=== PATIENT | male | born 1940 | race Caucasian/White ===

== ENCOUNTER → 2020-01-20 14:03 | Outpatient (CLI) | payer BC, SELFPAY ==
--- NOTE | 2020-01-20 | DI.US.S_ITS ---
PROCEDURE: US ABDOMEN LIMITED INDICATIONS: HEMACHROMATOSIS TECHNIQUE: Real-time scanning was performed of the abdominal and retroperitoneal organs, with image documentation. COMPARISON: None. FINDINGS: Liver: There is diffusely increased echogenicity in the liver with attenuation of deeper structures. Gallbladder: Nonshadowing sludge is seen within the dependent portion the gallbladder it gallbladder wall is normal in thickness. Sonographic Valle sign is negative. Biliary ducts: Intrahepatic bile ducts are non-dilated. Extrahepatic bile duct caliber measures 5 mm. Normal is 6-7 mm or less in diameter, or 10 mm or less post-cholecystectomy. Pancreas: Visualized portions of the pancreas are sonographically normal. Miscellaneous: No free right upper quadrant fluid. IMPRESSION: 1. Increased hepatic echogenicity noted possibly related to hepatic steatosis but other sources of hepatocellular disease cannot be excluded. Recommend clinical correlation. 2. Mild gallbladder sludge without calcified gallstones. No signs of acute cholecystitis. Dictated by: Waqas To M.D. on 01/20/2020 at 15:44 Approved by: Waqas To M.D. on 01/20/2020 at 15:49
== END ==
PROVIDERS: PCP Family Medicine; Referring Provider Family Medicine; Visit Provider Naturopath
DX: E83.119 Hemochromatosis, unspecified (principal); K83.8 Other specified diseases of biliary tract
CPT/HCPCS: 76705

== ENCOUNTER → 2020-04-12 09:05 | Outpatient (CLI) | payer BC, SELFPAY ==
--- NOTE | 2020-04-12 09:08 | DI.ECHO.S_ITS ---
[facility] +---------+ : : [address] [place] : : : : [id number] : : : : Phone: [phone]+ Echocardiogram Report + + :Name: MATT ESTRELLA Study Date: 04/12/2020 Height: 76 in : :[facility] Weight: 250 lb : : Gender: Male BSA: 2.4 m2 : :: 1940 Age: 79 yrs BP: 127/74 mmHg: :Reason For Study: aortic stenosis : :Ordering Physician: GREGORY, : :MATT Performed By: Margarita Leyva : :Referring: MATT JENKINS L : + + Interpretation Summary The ejection fraction is estimated to be 55-60%. The aortic valve is moderately calcified. There is moderate to severe aortic stenosis. The calculated aortic valve area is 1.0 cm2. The peak aortic velocity is 3.2 m/sec. Compared to the prior echo study, there has been an increase in the severity of aortic stenosis. There is mild aortic regurgitation. The right ventricular systolic pressure is estimated to be at least 26 mmHg based on an estimated right atrial pressure of 3 mm Hg. Procedure: A two-dimensional transthoracic echocardiogram with color flow and Doppler was performed. The study quality was technically difficult. Comparison is made with the echocardiogram of 09/30/2017. The patient was in sinus rhythm with heart rates between 62-71 bpm during the exam. Left Ventricle: Proximal septal thickening is noted. The left ventricle is normal in size. Left ventricular wall thickness is mildly increased. The ejection fraction is estimated to be 55-60%. Septal motion is consistent with conduction abnormality. Diastolic parameters suggest a relaxation abnormality of the left ventricle, consistent with probable normal filling pressures. Right Ventricle: The right ventricle is mildly dilated. The right ventricular systolic function is normal. Atria: Both atria are normal in size. There is no Doppler evidence for an interatrial shunt. Mitral Valve: The mitral valve is normal in structure and function. There is trace mitral regurgitation. Aortic Valve: The aortic valve is moderately calcified. The aortic valve mean gradient is 24 mmHg. The peak aortic velocity is 3.2 m/sec. The calculated aortic valve area is 1.0 cm2. There is moderate to severe aortic stenosis. Compared to the prior echo study, there has been an increase in the severity of aortic stenosis. There is mild aortic regurgitation. Compared to the prior echo study, there has been a decrease in the severity of aortic regurgitation. Tricuspid Valve: The tricuspid valve is not well visualized, but is grossly normal. There is mild tricuspid regurgitation. The right ventricular systolic pressure is estimated to be at least 26 mmHg based on an estimated right atrial pressure of 3 mm Hg. Pulmonic Valve: The pulmonic valve leaflets are thin and pliable; valve motion is normal. There is no pulmonic valvular regurgitation. Great Vessels: The aortic root is normal size. The ascending aorta could not be visualized. The IVC is of normal diameter and collapses greater than 50% with a sniff. This suggests a low right atrial pressure of 3 mm Hg. Pericardium/ Pleura There is no pericardial effusion. There is no pleural effusion. MMode/2D Measurements & Calculations LVIDd: 4.2 cm LVOT diam: 2.0 cm LVIDs: 2.6 cm Ao root diam: 3.9 cm FS: 37.9 % Ao Arch Diam (Prox Trans): 2.8 cm IVSd: 1.2 cm LVPWd: 0.85 cm LV raza. diameter/BSA (cm/m^2): 1.7 LV sys. diameter/BSA (cm/m^2): 1.1 LA A2 area: 22.7 cm2 RA long axis: 5.6 cm LA A4 area: 15.1 cm2 RA area: 18.0 cm2 LA length (vol): 5.5 cm RA vol: 49.5 ml LA vol: 52.5 ml RA : 20.3 ml/m2 LA vol index: 21.6 ml/m2 IVC diam: 0.98 cm RVD1 (basal): 4.4 cm TAPSE: 2.2 cm Doppler Measurements & Calculations Ao V2 max: 317.8 cm/sec LVOT Max Lazaro: 95.3 cm/sec Ao V2 mean: 234.1 cm/sec LV V1 max P.6 mmHg Ao max P.4 mmHg LV V1 VTI: 22.8 cm Ao mean P.9 mmHg MIRELLA(I,D): 1.0 cm2 Ao V2 VTI: 73.0 cm MIRELLA(V,D): 0.97 cm2 sev ratio: 0.31 MIRELLA indexed to BSA (cm^2/m^2): 0.41 MV E max lazaro: 63.9 cm/sec TR max lazaro: 242.8 cm/sec MV A max lazaro: 104.1 cm/sec TR max P.6 mmHg MV E/A: 0.61 PA V2 max: 82.1 cm/sec Med Peak E' Lazaro: 4.3 cm/sec PA V2 mean: 54.9 cm/sec E/E' med: 15.0 PA mean P.4 mmHg Lat Peak E' Lazaro: 4.8 cm/sec PA pr(Accel): 32.8 mmHg E/E' lat: 13.2 E/e' average: 14.1 MV dec time: 0.26 sec SV(LVOT): 73.7 ml Reading Physician:11:50 AM
== END ==
PROVIDERS: PCP Family Medicine; Referring Provider Family Medicine; Visit Provider Family Medicine
DX: I08.2 Rheumatic disorders of both aortic and tricuspid valves (principal)
CPT/HCPCS: 93306

== ENCOUNTER → 2021-12-19 12:23 | Outpatient (CLI) | payer BC, SELFPAY ==
--- NOTE | 2021-12-19 | DI.US.S_ITS ---
LIMITED ULTRASOUND OF LEFT BREAST: 12/19/2021 CLINICAL: Focal left breast pain retroareloar. No prior exams were available for comparison. Real-time ultrasound of the left breast retroareolar was performed. Tejeda scale images of the real-time examination were reviewed. There is a benign area of fibroglandular tissue in the left breast central to the nipple in the retroareolar region. This correlates as palpated and to the reported pain. No lipoma or mass. IMPRESSION: BENIGN There is no sonographic evidence of malignancy. The area of fibroglandular tissue in the retroareolar left breast is consistent with benign gynecomastia. Exam findings were conveyed to the patient. Patient is advised to monitor for significant change. Clinical follow-up is recommended. This exam was interpreted at Station ID: [id number]. Electronically Signed By: Krishna Mak M.D. slc/:12/19/2021 13:47:10 copy to: KEYLA SUAZO letter sent: Clinical Evaluation Ultrasound BI-RADS: 2 Benign
--- NOTE | 2021-12-19 | DI.MG.S_ITS ---
MALE BILATERAL DIGITAL DIAGNOSTIC MAMMOGRAM 3D/2D: 12/19/2021 CLINICAL: Left breast mass. No prior exams were available for comparison. Male patient. Predominantly fatty tissue. There is an irregular area of fibroglandular tissue in the left breast central to the nipple in the retroareolar region. Left greater than the right. No other significant masses, calcifications, or other findings are seen in either breast. IMPRESSION: INCOMPLETE: NEEDS ADDITIONAL IMAGING EVALUATION The irregular area of fibroglandular tissue in the left breast is indeterminate. A targeted ultrasound is recommended and will immediately follow. This exam was interpreted at Station ID: [id number]. Electronically Signed By: Krishna Mak M.D. slc/:12/19/2021 13:26:50 copy to: KEYLA SUAZO ACR BI-RADS Category 0: Incomplete [id number]
--- NOTE | 2021-12-19 12:26 | DI.RAD.S_ITS ---
PROCEDURE: XR KNEE RT 3V INDICATIONS: back pain, right hip knee pain TECHNIQUE: <3> views of the knee were acquired. COMPARISON: None. FINDINGS: Bones: No fractures or dislocations. No suspicious bony lesions. Mild osteoarthritis. Soft tissues: Trace joint fluid. No suspicious soft tissue calcifications. IMPRESSION: Mild osteoarthritis without fracture or dislocation. Dictated by: Omar Pozo M.D. on 12/19/2021 at 17:31 Approved by: Omar Pozo M.D. on 12/19/2021 at 17:32
--- NOTE | 2021-12-19 12:26 | DI.RAD.S_ITS ---
PROCEDURE: XR LUMBAR SPINE 2-3V INDICATIONS: back pain, right hip knee pain TECHNIQUE: 3 views of the lumbar spine were acquired. COMPARISON: [facility], , L-SPINE 2-3 VIEWS, 01/27/2015, 15:43. FINDINGS: Bones: Transitional anatomy, the lowest vertebral body is designated as a lumbarized S1 on this study. Moderate lower lumbar and lumbosacral degenerative changes. No acute fracture or dislocation. Soft tissues: Overlying bowel gas pattern is normal. No suspicious soft tissue calcifications. Mild degenerative changes of the hips. IMPRESSION: Moderate lower lumbar and lumbosacral degenerative changes. Dictated by: Omar Pozo M.D. on 12/19/2021 at 17:25 Approved by: Omar Pozo M.D. on 12/19/2021 at 17:30
--- NOTE | 2021-12-19 12:26 | DI.RAD.S_ITS ---
PROCEDURE: XR HIP W PEL IF DONE RT 2V INDICATIONS: back pain, right hip knee pain TECHNIQUE: 2 views of the hip were acquired. COMPARISON: None. FINDINGS: Bones: No fractures or dislocations. No suspicious bony lesions. The visualized pelvic ring appears intact. Mild bilateral femoral acetabular osteoarthritic changes. Soft tissues: No suspicious soft tissue calcifications or masses. IMPRESSION: Mild bilateral femoral acetabular osteoarthritic changes. Dictated by: Omar Pozo M.D. on 12/19/2021 at 17:30 Approved by: Omar Pozo M.D. on 12/19/2021 at 17:31
== END ==
PROVIDERS: PCP Family Medicine; Referring Provider Family Medicine; Visit Provider Family Medicine
DX: N63.25 Unspecified lump in the left breast, overlapping quadrants (principal); N64.4 Mastodynia; M17.11 Unilateral primary osteoarthritis, right knee; M47.816 Spondylosis without myelopathy or radiculopathy, lumbar region; R92.8 Other abnormal and inconclusive findings on diagnostic imaging of breast; M47.817 Spondylosis without myelopathy or radiculopathy, lumbosacral region; M25.551 Pain in right hip; M25.561 Pain in right knee; M54.50 Low back pain, unspecified
CPT/HCPCS: 72100; 73502; 73562; 76642; 77066; G0279

== ENCOUNTER 2022-04-20 09:43 | Outpatient (RCR) | payer MEDICARE, OTHER, SELFPAY ==
--- NOTE | 2022-04-20 11:36 | PT.OIE ---
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 Obesity (BMI 30-39.9) Obstructive sleep apnea, adult Osteoarthritis Skin cancer Tobacco use disorder, continuous Past Surgical History (Last Reviewed 02/20/22 @ 15:46 by Nicole Contreras MD) H/O circumcision H/O hernia repair H/O: vasectomy Visit Care Team Role Provider Type Jesse Atkins MD Family Provider Physician Primary Care Provider Specialty: Family Practice Address: [address] [place] [address], [address], [place], [address] Email: Nicole Contreras MD Attending Provider Physician Referring Provider Specialty: Urology Address: [address] [place] [address], [id number] Email: Physical Therapy Initial Evaluation PT-OP-A Visit Information Start: 04/13/22 12:03 Freq: Status: Active Protocol: Document 04/20/22 09:48 AMB (Rec: 04/20/22 10:27 AMB [id number]) Out-Patient Physical Therapy Visit Information Visit Information Visit Type Initial Evaluation Visit Start Time 09:45 Visit Stop Time 10:30 Total Visit Minutes 45 Visit Number 1 PT-OP-B Current Condition Start: 04/13/22 12:03 Freq: Status: Active Protocol: Document 04/20/22 09:48 AMB (Rec: 04/20/22 10:27 AMB [id number]) Current Condition History of Current Condition Onset Date 2 YEARS Current Complaints Urgency History of Current Condition Jesse reports BPH, difficulty voiding and urgency. Voids every 2 hours, does void more frequently with coffee. Gets up 1-2x/night. Drinking water seems to trigger the urgency. Does report difficulty fully voiding, urge incontinence. Walking to the bathroom seems to be a trigger. Current Functional Impairments (Reported) Functional Limitations- ADL's Difficulty voiding, urge incontinence Personal Factors Other Personal Factors That May Effect Osteoarthritis: hip and back Therapy/Recovery pain, BMI 30.4 PT-OP-C Subjective Start: 04/13/22 12:03 Freq: Status: Active Protocol: Document 04/20/22 09:45 AMB (Rec: 04/22/22 11:13 AMB [id number]) Patient Questionnaires Pelvic Floor Distress Inventory Questionnaire (PFDI- SF20) Pelvic Floor Score 10 PT-OP-I Pelvic Floor Start: 04/13/22 12:03 Freq: Status: Active Protocol: Document 04/20/22 09:45 AMB (Rec: 04/22/22 11:15 AMB [id number]) Pelvic Floor Assessment Urine Pelvic Floor Surgery No Urinary Symptoms Urge Sensation,Dribbling After Urination,Incomplete Emptying Leakage Size Small Leakage Cause Urge Other Leakage Causes specifically denies stress incontinence Leaks Per Day 1 Voiding Frequency every 2 hours Nocturia 2 Comments Pelvic Floor Comments declined internal assessment/ biofeedback today, but would consider biofeedback at a later date if needed. PT-OP-T Assessment and Plan Start: 04/13/22 12:03 Freq: Status: Active Protocol: Document 04/20/22 09:45 AMB (Rec: 04/22/22 11:31 AMB [id number]) Physical Therapy Assessment Rehab Potential Rehabilitation Potential Good Evaluation Complexity Number of Personal Factors/Comorbidities 1-2 Number of Body Systems Impaired 1-2 Clinical Presentation at Evaluation Stable Impairments Impairments Functional Activities,Strength Goals Two Impairment Pelvic floor strength Short Term Goal (STG) Jesse will demonstrate improved pelvic floor strength by al his pelvic floor for 10 seconds. STG Duration 5 Braid Maker Goal (LTG) Jesse will contract his pelvic floor while moving from sit to stand. LTG Duration 10 weeks One Impairment Urge incontinence Short Term Goal (STG) Jesse will utilize urge reduction techniques so that he can walk to the bathroom without leaking urine. STG Duration 5 weeks Braid Maker Goal (LTG) Jesse will move from sit to stand without leaking do to urgency. LTG Duration 10 weeks Assessment Summary Assessment Jesse attends physical therapy with his . He has BPH which makes it difficult for him to fully evacuate the bladder. His main reason for attending PT is his urge incontinence. He will get the urge to urinate and then leaks on the way to the bathroom. Denies stress incontinence. He does endorse some urinary frequency, worsened by coffee. Extensive education on urge reduction and how to contract pelvic floor. Will likely want to evaluate pelvic floor contraction when pt amenable to this with biofeedback. Pt will benefit from physical therapy for further instruction in urinary urge reduction and pelvic floor strengthening. Physical Therapy Plan Frequency and Duration Frequency of Treatment 1x/Week Duration of treatment (weeks) 10 Plan of Care Start Date 04/20/22 Plan of Care End Date 06/29/22 Therapeutic Interventions Therapeutic Interventions Home Exercise Program,Manual Therapy,Neuromuscular Re- education,Self-Care/Home Management,Therapeutic Activities,Therapeutic Exercises Modalities Biofeedback,Electric Stimulation Next Visit Focus/Plan Next Note Type Treatment Note Next Visit Plan sEMG, follow up on urge reduction
--- NOTE | 2022-04-20 11:36 | PT.OPPOC ---
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) Urge incontinence (04/20/22) Benign prostatic hyperplasia with lower urinary tract symptoms (04/20/22) Unspecified symptoms and signs involving the genitourinary system (04/20/22) Visit Care Team Role Provider Type Jesse Atkins MD Family Provider Physician Primary Care Provider Specialty: Family Practice Address: [address], [address], [place], [address] Email: Nicole Contreras MD Attending Provider Physician Referring Provider Specialty: Urology Address: [address] [place] [address], [id number] Email: Plan Of Care PT-OP-T Assessment and Plan Start: 04/13/22 12:03 Freq: Status: Active Protocol: Document 04/20/22 09:45 AMB (Rec: 04/22/22 11:31 AMB [id number]) Physical Therapy Assessment Rehab Potential Rehabilitation Potential Good Evaluation Complexity Number of Personal Factors/Comorbidities 1-2 Number of Body Systems Impaired 1-2 Clinical Presentation at Evaluation Stable Impairments Impairments Functional Activities,Strength Goals Two Impairment Pelvic floor strength Short Term Goal (STG) Jesse will demonstrate improved pelvic floor strength by al his pelvic floor for 10 seconds. STG Duration 5 Longterm Goal (LTG) Jesse will contract his pelvic floor while moving from sit to stand. LTG Duration 10 weeks One Impairment Urge incontinence Short Term Goal (STG) Jesse will utilize urge reduction techniques so that he can walk to the bathroom without leaking urine. STG Duration 5 weeks Core Worker Goal (LTG) Jesse will move from sit to stand without leaking do to urgency. LTG Duration 10 weeks Assessment Summary Assessment Jesse attends physical therapy with his . He has BPH which makes it difficult for him to fully evacuate the bladder. His main reason for attending PT is his urge incontinence. He will get the urge to urinate and then leaks on the way to the bathroom. Denies stress incontinence. He does endorse some urinary frequency, worsened by coffee. Extensive education on urge reduction and how to contract pelvic floor. Will likely want to evaluate pelvic floor contraction when pt amenable to this with biofeedback. Pt will benefit from physical therapy for further instruction in urinary urge reduction and pelvic floor strengthening. Physical Therapy Plan Frequency and Duration Frequency of Treatment 1x/Week Duration of treatment (weeks) 10 Plan of Care Start Date 04/20/22 Plan of Care End Date 06/29/22 Therapeutic Interventions Therapeutic Interventions Home Exercise Program,Manual Therapy,Neuromuscular Re- education,Self-Care/Home Management,Therapeutic Activities,Therapeutic Exercises Modalities Biofeedback,Electric Stimulation Next Visit Focus/Plan Next Note Type Treatment Note Next Visit Plan sEMG, follow up on urge reduction Plan of Care Dates Plan of Care Start Date 04/20/22 Plan of Care End Date 06/29/22 Electronically Signed by: Svetlana Swann, PT 04/22/22 2364 If you are in agreement with this Plan of Care, please return a signed and dated copy. I have reviewed this Plan of Care and certify that the skilled therapy services above are required to meet the patient?s needs. Physician Signature Date Printed Name and Credentials Clinical Instructor Signature Printed Name and Credentials
--- NOTE | 2022-08-26 10:33 | PT.OPDS ---
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) Urge incontinence (04/20/22) Benign prostatic hyperplasia with lower urinary tract symptoms (04/20/22) Unspecified symptoms and signs involving the genitourinary system (04/20/22) Visit Care Team Role Provider Type Jesse Atkins MD Family Provider Physician Primary Care Provider Specialty: Family Practice Address: [address], [address], [place], [address] Email: Nicole Contreras MD Attending Provider Physician Referring Provider Specialty: Urology Address: [address] [place] [address], [id number] Email: Visit Number Visit Number 1 Discharge Summary PT-OP-B Current Condition Start: 04/13/22 12:03 Freq: Status: Active Protocol: Document 04/20/22 09:48 AMB (Rec: 04/20/22 10:27 AMB [id number]) Current Condition History of Current Condition Onset Date 2 YEARS Current Complaints Urgency History of Current Condition Jesse reports BPH, difficulty voiding and urgency. Voids every 2 hours, does void more frequently with coffee. Gets up 1-2x/night. Drinking water seems to trigger the urgency. Does report difficulty fully voiding, urge incontinence. Walking to the bathroom seems to be a trigger. Current Functional Impairments (Reported) Functional Limitations- ADL's Difficulty voiding, urge incontinence Personal Factors Other Personal Factors That May Effect Osteoarthritis: hip and back Therapy/Recovery pain, BMI 30.4 PT-OP-C Subjective Start: 04/13/22 12:03 Freq: Status: Active Protocol: Document 04/20/22 09:45 AMB (Rec: 04/22/22 11:13 AMB [id number]) Patient Questionnaires Pelvic Floor Distress Inventory Questionnaire (PFDI- SF20) Pelvic Floor Score 10 PT-OP-I Pelvic Floor Start: 04/13/22 12:03 Freq: Status: Active Protocol: Document 04/20/22 09:45 AMB (Rec: 04/22/22 11:15 AMB [id number]) Pelvic Floor Assessment Urine Pelvic Floor Surgery No Urinary Symptoms Urge Sensation,Dribbling After Urination,Incomplete Emptying Leakage Size Small Leakage Cause Urge Other Leakage Causes specifically denies stress incontinence Leaks Per Day 1 Voiding Frequency every 2 hours Nocturia 2 Comments Pelvic Floor Comments declined internal assessment/ biofeedback today, but would consider biofeedback at a later date if needed. PT-OP-T Assessment and Plan Start: 04/13/22 12:03 Freq: Status: Active Protocol: Document 08/26/22 10:32 AMB (Rec: 08/26/22 10:33 [facility] [id number]) Physical Therapy Assessment Assessment Summary Assessment Jesse was evaluated over 4 months ago. He canceled due to being sick. This therapist called his and encouraged them to reschedule, but that was over a month ago and they have not done so yet. They are therefore discharged and would need to return with a new referral if they wish to be seen in physical therapy in the future. Physical Therapy Plan Discharge Physical Therapy Discharge Reasons No Longer Attending PT
== END 2022-08-27 11:20 | disposition home or self-care (01) ==
LOC: PHYS 09:43
PROVIDERS: Family Provider Family Medicine; PCP Family Medicine; Referring Provider Specialist; Visit Provider Specialist
DX: N40.1 Benign prostatic hyperplasia with lower urinary tract symptoms (principal); N13.8 Other obstructive and reflux uropathy; R39.9 Unspecified symptoms and signs involving the genitourinary system; N39.41 Urge incontinence
CPT/HCPCS: 97161

== ENCOUNTER → 2023-02-19 15:42 | Outpatient (CLI) | payer MEDICARE, OTHER, SELFPAY ==
--- NOTE | 2023-02-19 | DI.US.S_ITS ---
PROCEDURE: US CAROTID DOPPLER BI INDICATIONS: Essential (primary) hypertension TECHNIQUE: Color and pulse Doppler interrogation was performed of both carotid systems, with image documentation and velocity measurements. COMPARISON: None. FINDINGS: Stenosis calculations are based on SRU (Society of Radiologists in Ultrasound) criteria. The flow velocities and the arterial waveforms are normal within both carotid arterial systems. Atherosclerotic plaque is seen on both sides, left worse than right. The estimated degree of internal carotid artery stenosis is less than 50%. Antegrade flow is confirmed within both vertebral arteries. IMPRESSION: No hemodynamically significant stenosis is seen. Dictated by: Loki Lawrence M.D. on 02/19/2023 at 17:34 Approved by: Loki Lawrence M.D. on 02/19/2023 at 17:35
== END ==
PROVIDERS: Family Provider Family Medicine; PCP Family Medicine; Referring Provider Family Medicine; Visit Provider Family Medicine
DX: I10 Essential (primary) hypertension (principal)
CPT/HCPCS: 93880

== ENCOUNTER 2023-08-17 13:56 | Emergency (ER) | payer MEDICARE, OTHER, SELFPAY ==
[2023-08-17] VITALS (15 sets, daily range): BP systolic 105–132; BP diastolic 57–79; PULSE 64–93; RESP 15–34; TEMP 36.9–37.9; O2SAT 94–99; BMI 30.9
--- NOTE | 2023-08-17 14:14 | ED_ITS ---
HPI - Weakness General Chief complaint: Weakness Stated complaint: fall T-14, feeling weak, unable to stand Time Seen by Provider: 08/17/23 14:07 History of Present Illness HPI Narrative: Patient is a 82 year old male history of hypothyroid, BPH hyperlipidemia presenting today with increasing weakness and low-grade temperature. He fell a couple weeks back injuring his head requiring barry that has healed. They thought he was getting better however last night he was very weak required an EMS lift assist. This morning he was able to get out of bed and walk overall very weak. He did not really fall last night but he was lower to the ground. Feels like legs are very weak. He really has no symptoms. He has no chest pain or cough no shortness breath no abdominal pain nausea or vomiting. He denies any painful frequent urination but has frequent urinary incontinence. Related Data Home Medications Medication Instructions Recorded Confirmed levothyroxine 125 mcg tablet 125 mcg PO DAILY 03/15/20 02/20/22 (Synthroid) rosuvastatin 5 mg tablet 5 mg PO DAILY 03/15/20 02/20/22 dorzolamide 22.3 mg-timolol 6.8 EYE-BOTH 03/21/20 02/20/22 mg/mL eye drops Respironics DreamStation 04/13/21 02/20/22 Previous Rx's Medication Instructions Recorded tamsulosin 0.4 mg capsule 0.4 mg PO BID #180 caps 06/19/22 tadalafil 20 mg tablet 20 mg PO .every 2 to 3 days PRN 12/26/22 sexual activity #20 tabs Allergies Allergy/AdvReac Type Severity Reaction Status Date / Time No Known Drug Allergies Allergy Verified 08/17/23 14:08 Patient History 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 Tobacco use disorder, continuous Obesity (BMI 30-39.9) Insomnia due to medical condition Hyperlipidemia Excessive daytime sleepiness Obstructive sleep apnea, adult Erectile dysfunction BPH w urinary obs/LUTS Lower urinary tract symptoms (LUTS) Anemia Osteoarthritis Skin cancer Surgical History H/O circumcision H/O: vasectomy H/O hernia repair Family History Father Sleep apnea Hypertension Alcohol abuse Mother Depression Family/Other Alcohol abuse Social History Smoking Status: Current every day smoker Smoking Status: Current every day smoker Exam Initial Vital Signs Initial Vital Signs: Vital Signs Temperature 100.3 F H 08/17/23 13:58 Pulse Rate 93 H 08/17/23 13:58 Respiratory Rate 15 08/17/23 13:58 Blood Pressure 132/79 08/17/23 13:58 Pulse Oximetry 94 08/17/23 13:58 Oxygen Delivery Method Room Air 08/17/23 13:58 GENERAL: Alert pleasant well-appearing 82-year-old HEENT: Head atraumatic,EOMI, pupils reactive, face symmetric, [moist] mucous membranes CARDIOVASCULAR: Regular rate and rhythm without murmurs, rubs or gallops. RESPIRATORY: Breath sounds equal bilaterally, no wheezes rales or rhonchi. ABDOMEN: Soft, nontender. Normoactive bowel sounds all 4 quadrants. No guarding or rebound. EXTREMITIES: Normal range of motion, no clubbing or edema. Neurovascularly intact NEUROLOGICAL: Alert and oriented x4.Normal gait and speech. Cranial nerves II through XII grossly intact. Able to lift both legs off gurney no drift manager concrete strength equal bilaterally SKIN: Warm, dry, no laceration, no petechiae, no rashes or lesions. Course Orders Ordered: ED Orders 08/17/23 14:07 EKG-12 Lead Stat 08/17/23 14:09 Respiratory Panel (Film Array) Stat 08/17/23 14:15 Complete Blood Count AUTO DIFF Stat Comprehensive Metabolic Panel Stat Lactate (Lactic Acid) Stat Procalcitonin Stat TSH [Thyroid Stimulating Hormone] Stat Troponin & CK Cardiac Panel Stat 08/17/23 14:33 Blood Culture Stat 08/17/23 16:15 Trop I [Troponin I] Stat 08/17/23 16:53 Urinalysis and Microscopic Stat 08/17/23 17:20 Chest [XR chest 1V] Stat Discontinued Medications Acetaminophen (Acetaminophen 325 Mg Tablet) 975 mg PO NOW ONE Stop: 08/17/23 14:21 Last Admin: 08/17/23 14:28 Dose: 975 mg Documented By: LANNY Sodium Chloride (Normal Saline 0.9%) 1,000 mls @ 1,000 mls/hr IV BOLUS ONE Stop: 08/17/23 15:19 Last Infusion: 08/17/23 15:40 Dose: Infused Documented By: Admin: 08/17/23 14:32 Dose: 1,000 mls/hr Documented By: LANNY Sodium Chloride (Normal Saline 0.9%) 1,000 mls @ 1,000 mls/hr IV BOLUS ONE Stop: 08/17/23 16:44 Last Infusion: 08/17/23 17:26 Dose: Infused Documented By: Admin: 08/17/23 15:51 Dose: 1,000 mls/hr Documented By: ELSA Vital Signs Vital signs: Vital Signs - 8 hr 08/17/23 13:58 08/17/23 14:05 08/17/23 14:28 Temperature 100.3 F H 100.3 F H Pulse Rate 93 H 88 Respiratory Rate 15 34 H Blood Pressure 132/79 Pulse Oximetry 94 95 Oxygen Delivery Method Room Air 08/17/23 14:30 08/17/23 14:40 08/17/23 15:00 Temperature Pulse Rate 76 74 69 Respiratory Rate 26 H 18 20 Blood Pressure Pulse Oximetry 96 98 97 Oxygen Delivery Method Room Air 08/17/23 15:15 08/17/23 15:15 08/17/23 15:30 Temperature Pulse Rate 70 66 Respiratory Rate 19 23 Blood Pressure 118/57 L Pulse Oximetry 98 98 Oxygen Delivery Method 08/17/23 15:30 08/17/23 15:59 08/17/23 16:00 Temperature 98.4 F Pulse Rate 66 Respiratory Rate 17 Blood Pressure 118/63 Pulse Oximetry 97 Oxygen Delivery Method 08/17/23 16:00 08/17/23 16:30 08/17/23 16:31 Temperature Pulse Rate 64 Respiratory Rate 19 Blood Pressure 124/60 105/59 L Pulse Oximetry 99 Oxygen Delivery Method 08/17/23 16:31 08/17/23 17:00 08/17/23 17:00 Temperature Pulse Rate 64 67 Respiratory Rate 18 23 Blood Pressure 114/57 L Pulse Oximetry 98 99 Oxygen Delivery Method 08/17/23 18:18 08/17/23 18:18 08/17/23 18:21 Temperature 98.8 F Pulse Rate 68 Respiratory Rate Blood Pressure 112/60 Pulse Oximetry 97 Oxygen Delivery Method MDM - Weakness Lab Data 08/17/23 14:15 08/17/23 14:15 Labs: Lab Results 08/17/23 08/17/23 08/17/23 Range/Units 14:09 14:15 16:15 WBC 9.0 (4.5-11.0) X10^3/uL RBC 4.09 L (4.5-5.9) X10^6/uL Hgb 12.9 L (13.5-17.5) g/dL Hct 37.4 L (41-53) % MCV 91.4 (80-100) fL MCH 31.6 (26-34) PG MCHC 34.6 (30-36) % RDW 13.9 (11.6-14.8) % Plt Count 191 (150-400) X10^3/uL Neut % (Auto) 72.0 (50-75) % Lymph % (Auto) 16.0 L (25-40) % [place] % (Auto) 11.5 (3-14) % Eos % (Auto) 0.1 L (2-4) % Baso % (Auto) 0.4 (0-2) % Neut # (Auto) 6500 (9989-3082) /uL Lymph # (Auto) 1400 (0410-0991) /uL [place] # (Auto) 1000 H (0-900) /uL Eos # (Auto) 0 (0-450) /uL Baso # (Auto) 0 (0-100) /uL Sodium 137 (137-145) mmol/L Potassium 3.8 (3.4-5.1) mmol/L Chloride 105 (98-107) mmol/L Carbon Dioxide 25 (22-32) mmol/L BUN 15 (9-20) mg/dL Creatinine 0.69 (0.66-1.25) mg/dL Estimated GFR > 60 (>60) mL/min BUN/Creatinine Ratio 21.7 (6-22) Glucose 130 H (80-110) mg/dL Lactate 1.2 (0.7-2.1) mmol/L Calcium 8.9 (8.4-10.2) mg/dL Total Bilirubin 0.7 (0.2-1.3) mg/dL AST 29 (17-59) IU/L ALT 20 (<50) IU/L Alkaline Phosphatase 67 (38-126) U/L Total Creatine Kinase 60 (55-170) U/L Troponin I 0.035 H 0.031 (0.01-0.034) ng/mL Total Protein 8.6 H (6.3-8.2) g/dL Albumin 4.2 (3.5-5.0) g/dL Globulin 4.4 H (1.7-4.1) g/dL Albumin/Globulin Ratio 1.0 (1.0-2.8) Procalcitonin 0.08 (<0.5) ng/mL TSH 0.413 L (0.47-4.68) uIU/mL Urine Color Urine Appearance Urine pH (4.5-8.0) Ur Specific [place] (1.000-1.035) Urine Protein (Negative) Urine Glucose (UA) (Negative) g/dL Urine Ketones (NEGATIVE) Urine Occult Blood (Negative) Urine Nitrate (Negative) Urine Bilirubin (NEGATIVE) Urine Urobilinogen (0.2) E.U./dL Ur Leukocyte Esterase (NEGATIVE) Urine RBC (0-5/HPF) Urine WBC (0-5/HPF) Ur Squamous Epith Cells (0-5/HPF) Urine Bacteria (None) Urine Mucus (Negative) Ur Culture Indicated? Vol Urine Centrifuged Chlamy pneumoniae PCR Not detected (Not Detect) Adenovirus (PCR) Not detected (Not Detect) B.parapertussis DNA PCR Not detected (Not Detecte) Coronavirus OC43 (PCR) Not detected (Not Detect) Coronavirus HKU1 (PCR) Not detected (Not Detect) Coronavirus 229E (PCR) Not detected (Not Detect) SARS-CoV-2 (PCR) Not detected (Not Detecte) Coronavirus NL63 (PCR) Not detected (Not Detect) Human Metapneumovir PCR Not detected (Not Detect) Influenza Type A (PCR) Not detected (Not Detect) Influenza Type B (PCR) Not detected (Not Detect) M. pneumoniae (PCR) Not detected (Not Detect) Parainfluenza 1 (PCR) Not detected (Not Detect) Parainfluenza 2 (PCR) Not detected (Not Detect) Parainfluenza 3 (PCR) Not detected (Not Detect) Parainfluenza 4 (PCR) Not detected (Not Detect) RSV (PCR) Not detected (Not Detect) Entero/Rhino (PCR) Not detected (Not Detect) 08/17/23 Range/Units 16:53 WBC (4.5-11.0) X10^3/uL RBC (4.5-5.9) X10^6/uL Hgb (13.5-17.5) g/dL Hct (41-53) % MCV (80-100) fL MCH (26-34) PG MCHC (30-36) % RDW (11.6-14.8) % Plt Count (150-400) X10^3/uL Neut % (Auto) (50-75) % Lymph % (Auto) (25-40) % [place] % (Auto) (3-14) % Eos % (Auto) (2-4) % Baso % (Auto) (0-2) % Neut # (Auto) (6683-7564) /uL Lymph # (Auto) (0789-2032) /uL [place] # (Auto) (0-900) /uL Eos # (Auto) (0-450) /uL Baso # (Auto) (0-100) /uL Sodium (137-145) mmol/L Potassium (3.4-5.1) mmol/L Chloride (98-107) mmol/L Carbon Dioxide (22-32) mmol/L BUN (9-20) mg/dL Creatinine (0.66-1.25) mg/dL Estimated GFR (>60) mL/min BUN/Creatinine Ratio (6-22) Glucose (80-110) mg/dL Lactate (0.7-2.1) mmol/L Calcium (8.4-10.2) mg/dL Total Bilirubin (0.2-1.3) mg/dL AST (17-59) IU/L ALT (<50) IU/L Alkaline Phosphatase (38-126) U/L Total Creatine Kinase (55-170) U/L Troponin I (0.01-0.034) ng/mL Total Protein (6.3-8.2) g/dL Albumin (3.5-5.0) g/dL Globulin (1.7-4.1) g/dL Albumin/Globulin Ratio (1.0-2.8) Procalcitonin (<0.5) ng/mL TSH (0.47-4.68) uIU/mL Urine Color Yellow Urine Appearance Clear Urine pH 6.0 (4.5-8.0) Ur Specific [place] 1.015 (1.000-1.035) Urine Protein Negative (Negative) Urine Glucose (UA) Negative (Negative) g/dL Urine Ketones 1+ H (NEGATIVE) Urine Occult Blood Trace-intact (Negative) Urine Nitrate Negative (Negative) Urine Bilirubin Negative (NEGATIVE) Urine Urobilinogen 0.2 (0.2) E.U./dL Ur Leukocyte Esterase Negative (NEGATIVE) Urine RBC 0-1/hpf (0-5/HPF) Urine WBC 0-1/hpf (0-5/HPF) Ur Squamous Epith Cells 0-1 /hpf (0-5/HPF) Urine Bacteria Occasional (0-1) (None) Urine Mucus 1+ H (Negative) Ur Culture Indicated? Cult not indicated Vol Urine Centrifuged 10ml (spun) Chlamy pneumoniae PCR (Not Detect) Adenovirus (PCR) (Not Detect) B.parapertussis DNA PCR (Not Detecte) Coronavirus OC43 (PCR) (Not Detect) Coronavirus HKU1 (PCR) (Not Detect) Coronavirus 229E (PCR) (Not Detect) SARS-CoV-2 (PCR) (Not Detecte) Coronavirus NL63 (PCR) (Not Detect) Human Metapneumovir PCR (Not Detect) Influenza Type A (PCR) (Not Detect) Influenza Type B (PCR) (Not Detect) M. pneumoniae (PCR) (Not Detect) Parainfluenza 1 (PCR) (Not Detect) Parainfluenza 2 (PCR) (Not Detect) Parainfluenza 3 (PCR) (Not Detect) Parainfluenza 4 (PCR) (Not Detect) RSV (PCR) (Not Detect) Entero/Rhino (PCR) (Not Detect) Urine Dip Bedside Urine Glucose Negative Bedside Urine Bilirubin - Negative Bedside Urine Ketone +/- 5 Urine Specific [place] 1.020 Bedside Urine Occult Blood - Negative Bedside Urine pH 6.0 Bedside Urine Protein - Negative Bedside Urine Urobilinogen - Negative Bedside Urine Nitrite - Negative Bedside Urine Leukocytes - Negative Esterase Imaging Data Chest x-ray: Attestation: I personally reviewed and interpreted this imaging study as follows: My Impression: Probable rotation no obvious consolidation ECG Data Interpretation: EKG 1. Sinus rhythm rate 71 LA interval 214 QRS [address] elevation noted in V3 not V2 no ST depression no priors to compare EKG 2. Sinus rhythm rate [address] segments MDM Narrative Medical decision making narrative: Patient is a 82-year-old male who presents today with weakness. He is noted to have low-grade temperature of a 100? 0.3 but not tachycardic or hypotensive Blood work has been reviewed no leukocytosis WBC 9.0, hemoglobin 12.9 hematocrit 37.4 electrolytes no abnormality creatinine 0.69 glucose 130 lactate 1.2 troponin 0.035 with repeat 0.031, TSH 0.4130. Urinalysis no nitrites or leukocytes Respiratory panel negative Chest x-ray has been reviewed Records from [facility] have also been reviewed. He was seen evaluated on July 12 for a fall where he received barry. Also from [facility] be is a hematology follow-up plan from August 06. He is normocytic multifactorial anemia with an elevated ferritin and ESR level. He is multifactorial fatigue as well. He frequently has waxing and waning of symptoms. No obvious cause of infection. He has no evidence of sepsis. Unclear what his weakness is today. It does sound like after reviewing records he does have some ongoing fatigue and weakness. He reports being hospitalized needing fluids at some point. At this time he is now ambulatory after 2 L of IV fluids he is feeling much better. I have no reason for admission. Do recommend outpatient follow-up on his heart, but he currently is not having any sort of chest pain shortness of breath or cardiac equivalent symptoms. Discharge Plan Departure Patient Disposition: Home Clinical Impression: Weakness Instructions: DI for Fatigue Activity Restrictions/Additional Instructions: *You have been diagnosed with fatigue chronic weakness *What to do: At this time I do recommend that you talk to your primary care doctor about possibly further cardiac workup. This may or may not be contributing to your ongoing symptoms. At this time I do not see need for antibiotics. Unclear what is making You weaker. I am glad that you are feeling better after IV fluids *Continue to take medications as directed *Follow up with your primary care provider in 2-3 days or call [phone] *Return to ER if you should have increasing weakness falls confusion or any new, worsening or concerning symptoms Prescriptions: No Action rosuvastatin 5 mg tablet 5 mg PO DAILY levothyroxine [Synthroid] 125 mcg tablet 125 mcg PO DAILY tamsulosin 0.4 mg capsule 0.4 mg PO BID Qty: 180 3RF Rx Instructions: Take 30 minutes after morning a meal second dose at least 1 hour after evening meal. tadalafil 20 mg tablet 20 mg PO .every 2 to 3 days PRN (Reason: sexual activity) Qty: 20 11RF Rx Instructions: administer approximately 30min before sexual activity; do not use more than 1 dose per 24hrs One pill every 2 - 3 days. (DME) RespirxAds [facility]Station See Rx Instructions .Route .MEDSUPPLY Rx Instructions: CPAP Min: 6 Max: 14 DME: dorzolamide-timolol 22.3-6.8 mg/mL drops EYE-BOTH Referrals: Jesse Atkins MD [Primary Care Provider] - Stand Alone Forms: Patient Portal/API
[2023-08-17 14:25] LABS: Add Manual Diff / Slide Review NO; Basophils Absolute Auto 0 /uL (0-100); Basophils Percent Auto 0.4 % (0-2); Eosinophils Absolute Auto 0 /uL (0-450); Eosinophils Percent Auto 0.1 % (2-4); Hematocrit 37.4 % (41-53); Hemoglobin 12.9 g/dL (13.5-17.5); Lymphocytes Absolute Auto 1400 /uL (1100-4500); Mean Corpuscular HGB Conc 34.6 % (30-36); Mean Corpuscular Hemoglobin 31.6 PG (26-34); Mean Corpuscular Volume 91.4 fL (80-100); Monocytes Absolute Auto 1000 /uL (0-900); Monocytes Percent Auto 11.5 % (3-14); Neutrophils Absolute Auto 6500 /uL (1500-7000); Platelet Count 191 X10^3/uL (150-400); Red Blood Cell Count 4.09 X10^6/uL (4.5-5.9); Red Cell Distribution Width 13.9 % (11.6-14.8)
[2023-08-17] MEDS: ACETAMINOPHEN 325 MG TABLET 975 MG PO (14:28)
[2023-08-17] MEDS: SODIUM CHLORIDE 0.9% 1,000 ML 1000 ML IV ×2 (14:32→15:51)
[2023-08-17 14:35] LABS: Lactate (Lactic Acid) 1.2 mmol/L (0.7-2.1)
[2023-08-17 14:36] LABS: Alanine Aminotransferase 20 IU/L (<50); Albumin 4.2 g/dL (3.5-5.0); Alkaline Phosphatase 67 U/L (38-126); Aspartate Aminotransferase 29 IU/L (17-59); BUN Creatinine Ratio 21.7 (6-22); Bilirubin Total 0.7 mg/dL (0.2-1.3); Blood Urea Nitrogen 15 mg/dL (9-20); Calcium 8.9 mg/dL (8.4-10.2); Carbon Dioxide 25 mmol/L (22-32); Chloride 105 mmol/L (98-107); Creatine Kinase 60 U/L (55-170); Estimated Glomerular Filt Rate > 60 mL/min (>60); Globulin 4.4 g/dL (1.7-4.1); Glucose 130 mg/dL (80-110); HEMOLYSIS < 15 (0-50); Potassium 3.8 mmol/L (3.4-5.1); Sodium 137 mmol/L (137-145); Total Protein 8.6 g/dL (6.3-8.2)
[2023-08-17 14:48] LABS: Troponin I 0.035 ng/mL (0.01-0.034)
[2023-08-17 14:53] LABS: Procalcitonin 0.08 ng/mL (<0.5)
[2023-08-17 15:06] LABS: Adenovirus Not Detected (Not Detect); B. parapertussis Not Detected (Not Detecte); Bordetella pertussis Not Detected (Not Detect); Chlamydophila pneumoniae Not Detected (Not Detect); Coronavirus 229E Not Detected (Not Detect); Coronavirus HKU1 Not Detected (Not Detect); Coronavirus NL 63 Not Detected (Not Detect); Coronavirus OC43 Not Detected (Not Detect); Human Metapneumovirus Not Detected (Not Detect); Human Rhinovirus/Enterovirus Not Detected (Not Detect); Influenza A Not Detected (Not Detect); Influenza B Not Detected (Not Detect); Mycoplasma pneumoniae Not Detected (Not Detect); Parainfluenza Virus 1 Not Detected (Not Detect); Parainfluenza Virus 2 Not Detected (Not Detect); Parainfluenza Virus 3 Not Detected (Not Detect); Parainfluenza Virus 4 Not Detected (Not Detect); Respiratory Syncytial Virus Not Detected (Not Detect); SARS- CoV-2 Not Detected (Not Detecte)
[2023-08-17 15:20] LABS: Thyroid Stimulating Hormone 0.413 uIU/mL (0.47-4.68)
[2023-08-17 16:45] LABS: Troponin I 0.031 ng/mL (0.01-0.034)
[2023-08-17 17:02] LABS: Appearance Urine UA CLEAR; Bilirubin Urine UA NEGATIVE (NEGATIVE); Color Urine UA YELLOW; Glucose Urine UA NEGATIVE (Negative); Ketones Urine UA 1+ (NEGATIVE); Leukocyte Esterase Urine UA NEGATIVE (NEGATIVE); Nitrite Urine UA NEGATIVE (Negative); Occult Blood Urine UA TRACE-INTACT (Negative); Protein Urine UA NEGATIVE (Negative); Specific Gravity Urine UA 1.015 (1.000-1.035); Urobilinogen Urine UA 0.2 E.U./dL (0.2)
[2023-08-17 17:10] LABS: Bacteria Urine Occasional (0-1); Culture Indicated Urine Cult Not Indicated; Mucus Urine 1+ (Negative); RBC Urine 0-1/HPF (0-5/HPF); Squamous Epithelial Cell Urine 0-1 /HPF (0-5/HPF); Urine Volume 10mL (spun); WBC Urine 0-1/HPF (0-5/HPF)
--- NOTE | 2023-08-17 17:20 | DI.RAD.S_ITS ---
PROCEDURE: XR CHEST 1V INDICATIONS: weakness TECHNIQUE: One view of the chest was acquired. COMPARISON: [facility], , CHEST 2 VIEW, 09/24/2016, 10:40. FINDINGS: Surgical changes and devices: None. Lungs and pleura: Low lung volumes. Patchy opacities in the left lung base. No pleural effusions or pneumothorax. Mediastinum: Mediastinal contours appear normal. Heart size is normal. Bones and chest wall: No suspicious bony lesions. Overlying soft tissues appear unremarkable. IMPRESSION: Low lung volumes. Patchy left basilar opacities may reflect atelectasis, aspiration or pneumonia. Approved by: Kait Okeefe M.D. on 08/17/2023 at 17:43
== END 2023-08-17 18:21 | disposition home or self-care (01) ==
PROVIDERS: Emergency Provider Emergency Medicine; Family Provider Family Medicine; PCP Family Medicine
DX: R53.1 Weakness (principal); R50.9 Fever, unspecified; R07.9 Chest pain, unspecified; Z20.822 Contact with and (suspected) exposure to COVID-19
CPT/HCPCS: 36415; 71045; 80053; 81001; 81003; 82550; 83605; 84145; 84443; 84484; 85025; 87040; 87633; 93005; 96360; 96361; 99284

== ENCOUNTER → 2023-09-16 13:29 | Outpatient (CLI) | payer MEDICARE, OTHER, SELFPAY ==
--- NOTE | 2023-09-16 | DI.RAD.S_ITS ---
PROCEDURE: XR CHEST 2V INDICATIONS: subacute cough TECHNIQUE: 2 views of the chest were acquired. COMPARISON: [facility], CR, XR CHEST 1V, 08/17/2023, 17:39. FINDINGS: Surgical changes and devices: None. Lungs and pleura: Increased interstitial lung markings in bilateral lung lemus are seen. Pulmonary vascular congestion is also noted. Ill-defined airspace opacity in left infrahilar region is noted. Blunting of left costophrenic angle is also seen. No pneumothorax. Mediastinum: Mediastinal contours are normal. Heart size is enlarged. Bones and chest wall: No suspicious bony abnormalities. Soft tissues appear unremarkable. IMPRESSION: Small left pleural effusion and suggestion of left lower lobe infiltrate versus atelectasis. Increased interstitial lung markings suggestive of pulmonary edema versus interstitial pneumonitis. No pneumothorax. Dictated by: Joni Ha M.D. on 09/16/2023 at 15:10 Approved by: Joni Ha M.D. on 09/16/2023 at 15:11
[2023-09-16 15:16] LABS: Alanine Aminotransferase 18 IU/L (<50); Albumin 4.3 g/dL (3.5-5.0); Albumin Globulin Ratio 0.9 (1.0-2.8); Alkaline Phosphatase 75 U/L (38-126); Aspartate Aminotransferase 28 IU/L (17-59); BUN Creatinine Ratio 20.3 (6-22); Bilirubin Total 0.8 mg/dL (0.2-1.3); Blood Urea Nitrogen 13 mg/dL (9-20); Calcium 9.3 mg/dL (8.4-10.2); Carbon Dioxide 30 mmol/L (22-32); Chloride 98 mmol/L (98-107); Cholesterol 146 mg/dL (140-199); Estimated Glomerular Filt Rate > 60 mL/min (>60); Glucose 143 mg/dL (80-110); HDL Cholesterol 37 mg/dL (40-60); HEMOLYSIS 22 (0-50); LDL Cholesterol Calculated 84 mg/dL (<100); Magnesium 1.8 mg/dL (1.6-2.3); Potassium 3.9 mmol/L (3.4-5.1); Sodium 134 mmol/L (137-145); Total Protein 9.3 g/dL (6.3-8.2); Triglycerides 123 mg/dL (35-150)
[2023-09-16 15:34] LABS: Vitamin D 25 Hydroxy (D3) 42.3 ng/mL (30.0-100.0)
[2023-09-16 15:48] LABS: Thyroid Stimulating Hormone 1.39 uIU/mL (0.47-4.68)
[2023-09-16 16:05] LABS: Vitamin B12 845 pg/mL (239-931)
== END ==
LOC: LAB 13:31
PROVIDERS: Family Provider Family Medicine; PCP Family Medicine; Referring Provider Family Medicine; Visit Provider Family Medicine
DX: R05.2 Subacute cough (principal); I10 Essential (primary) hypertension; E03.9 Hypothyroidism, unspecified; E55.9 Vitamin D deficiency, unspecified; D50.9 Iron deficiency anemia, unspecified; R53.83 Other fatigue; J18.9 Pneumonia, unspecified organism; Z79.899 Other long term (current) drug therapy
CPT/HCPCS: 36415; 71046; 80053; 80061; 82306; 82607; 83735; 84443